=== PATIENT | female | born 1945 | race Caucasian/White ===

== ENCOUNTER 2018-03-23 10:30 | Outpatient (RCR) | payer MEDICARE, OTHER, SELFPAY ==
[2018-03-16 09:40] VITALS: BP 152/67; PULSE 83; RESP 16; TEMP 36; BMI 34.2
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
--- NOTE | 2018-03-23 08:30 | VDLE_ITS ---
Reason For Study: venous insufficiency RIGHT LEFT CFV is compressible, spontaneous, phasic, CFV is compressible, spontaneous, phasic, competent and demonstrates normal competent, and demonstrates normal augmentation. augmentation. FV is compressible, spontaneous, phasic, FV is compressible, spontaneous, phasic, competent and demonstrates normal competent and demonstrates normal augmentation. augmentation. POP V is compressible, spontaneous, phasic, POP V is compressible, spontaneous, phasic, competent and demonstrates normal competent and demonstrates normal augmentation. augmentation. T/P Trunk is compressible. T/P Trunk is compressible. PTV is compressible. PTV is compressible. RT PerV is compressible. LT PerV is compressible. S-F Junction is competent. S-F Junction is competent. GSV is incompetent throughout for greaster GSV is incompetent throughout for greaster than .5 seconds. GSV mesures .458 x .489 cm. than .5 seconds. GSV mesures .505 x .543 cm. SSV is competent. SSV is competent. Unable to image Peroneal V due to body Unable to image Peroneal V due to body habitus, edema, and open wounds. habitus, edema, and open wounds. Procedure Exam performed in department. The exam was of fair technical quality due to body habitus. Limited views of all veins. Interpretation Summary Deep veins of the lower extremities are bilaterally patent and compressible segmentally. There is no evidence of deep vein thrombosis on either side. Valvular competence appears intact within the proximal deep venous systems bilaterally. The greater saphenous veins appear bilaterally patent and compressible segmentally. Sapheno-femoral junctions are bilaterally competent . Segmental valvular incompetence is noted within the greater saphenous veins bilaterally. Small saphenous veins are patent and competent bilaterally. The peroneal veins were not visualized on either side. Ordering Physician: Fritz Kong Performed By: Bridgett, Kurt, RVT
[2018-03-23 10:01] VITALS: BP 139/66; PULSE 87; RESP 16; TEMP 36.2; BMI 34.2
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
--- NOTE | 2018-04-10 09:32 | LEAS ---
Arterial Study - Arterial Study Arterial Study: This is a 72-year-old female with a history of peripheral arterial occlusive disease. She is brought to the noninvasive vascular laboratory at this time for the purpose of bilateral noninvasive lower extremity arterial assessment. Doppler signal assessment was used to evaluate the pulses at ankle level bilaterally. On the right, the posterior tibial and dorsalis pedis pulses were biphasic. The left posterior tibial and dorsalis pedis pulses were triphasic. Segmental limb pressures were obtained bilaterally. The right ankle pressure, as determined by posterior tibial pulse, was measured at 191 mmHg. The right ankle pressure, as determined by dorsalis pedis pulse, was measured at 163 mmHg. Right digital pressure was measured at 114 mmHg. The left ankle pressure, as determined by posterior tibial pulse, was measured at 204 mmHg. The left ankle pressure, as determined by dorsalis pedis pulse, was measured at 202 mmHg. The left digital pressure was measured at 196 mmHg. Pulse-volume recordings were obtained bilaterally and segmentally. Waveform amplitudes appeared to be satisfactory at all levels bilaterally, including low thigh, calf, ankle, and digital levels. Resting ankle-brachial indices were calculated bilaterally. The resting right ankle-brachial index was calculated to be 1.00. The resting left ankle-brachial index was calculated to be 1.07. Digital-brachial indices were calculated bilaterally. The right digital-brachial index was calculated to be 0.60. The left digital-brachial index was calculated to be 1.03. Impression: Based upon the findings of this resting noninvasive lower extremity arterial study, arterial perfusion to ankle level appears to be relatively normal bilaterally. Biphasic waveforms are noted at ankle level on the right. Triphasic waveforms were noted at ankle level on the left. Resting ankle-brachial indices are bilaterally normal. These findings suggest relatively normal arterial flow to ankle level bilaterally. The right digital-brachial index is mildly diminished, suggesting the presence of mild, distal, small-vessel arterial occlusive disease in the right lower extremity. The left digital-brachial index is normal.
--- NOTE | 2018-04-10 09:39 | LEAS_ITS ---
Arterial Study - Arterial Study Arterial Study: This is a 72-year-old female with a history of peripheral arterial occlusive disease. She is brought to the noninvasive vascular laboratory at this time for the purpose of bilateral noninvasive lower extremity arterial assessment. Doppler signal assessment was used to evaluate the pulses at ankle level bilaterally. On the right, the posterior tibial and dorsalis pedis pulses were biphasic. The left posterior tibial and dorsalis pedis pulses were triphasic. Segmental limb pressures were obtained bilaterally. The right ankle pressure, as determined by posterior tibial pulse, was measured at 191 mmHg. The right ankle pressure, as determined by dorsalis pedis pulse, was measured at 163 mmHg. Right digital pressure was measured at 114 mmHg. The left ankle pressure , as determined by posterior tibial pulse, was measured at 204 mmHg. The left ankle pressure, as determined by dorsalis pedis pulse, was measured at 202 mmHg. The left digital pressure was measured at 196 mmHg. Pulse-volume recordings were obtained bilaterally and segmentally. Waveform amplitudes appeared to be satisfactory at all levels bilaterally, including low thigh, calf, ankle, and digital levels. Resting ankle-brachial indices were calculated bilaterally. The resting right ankle-brachial index was calculated to be 1.00. The resting left ankle- brachial index was calculated to be 1.07. Digital-brachial indices were calculated bilaterally. The right digital- brachial index was calculated to be 0.60. The left digital-brachial index was calculated to be 1.03. Impression: Based upon the findings of this resting noninvasive lower extremity arterial study, arterial perfusion to ankle level appears to be relatively normal bilaterally. Biphasic waveforms are noted at ankle level on the right. Triphasic waveforms were noted at ankle level on the left. Resting ankle- brachial indices are bilaterally normal. These findings suggest relatively normal arterial flow to ankle level bilaterally. The right digital-brachial index is mildly diminished, suggesting the presence of mild, distal, small- vessel arterial occlusive disease in the right lower extremity. The left digital-brachial index is normal.
== END 2018-03-25 23:59 ==
LOC: WC 10:30
PROVIDERS: PCP Family Medicine; Visit Provider Surgery
DX: L97.912 Non-pressure chronic ulcer of unspecified part of right lower leg with fat layer exposed (principal); L97.922 Non-pressure chronic ulcer of unspecified part of left lower leg with fat layer exposed; M79.89 Other specified soft tissue disorders; R60.0 Localized edema; E11.9 Type 2 diabetes mellitus without complications; I87.2 Venous insufficiency (chronic) (peripheral); I10 Essential (primary) hypertension; D64.9 Anemia, unspecified; E11.69 Type 2 diabetes mellitus with other specified complication; E78.5 Hyperlipidemia, unspecified; I42.9 Cardiomyopathy, unspecified; E66.9 Obesity, unspecified; I89.0 Lymphedema, not elsewhere classified; Z68.34 Body mass index [BMI] 34.0-34.9, adult; Z79.4 Long term (current) use of insulin
CPT/HCPCS: 11042; 11045; 29580; 93923; 93970; 99205; G0463

== ENCOUNTER 2018-04-20 08:13 | Outpatient (RCR) | payer MEDICARE, OTHER, SELFPAY ==
[2018-03-26 01:18] VITALS: BP 139/66; PULSE 87; RESP 16; TEMP 36.2
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
[2018-04-20 10:19] VITALS: BP 135/68; PULSE 76; RESP 18; TEMP 37.2
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
--- NOTE | 2018-04-21 09:27 | WC ---
Ms. Vaughn is currently staying at [facility] in [place], [place] PHONE: FAX: ([phone] Seen 04/[address] Kong (See Progress Note for DOS). Patient brought her lymphedema compression pump (VES 5100) with bilateral leg sleeves in during follow-up appointment. She mentioned she has had for approximately 6 years. She is not familiar with using them since it has been so long. Call made to [facility] and spoke with Alysa'. Staff there is not sure about the device. Arrangements being made to speak with lymphedema therapist Maryam John ([employer]) regarding use and settings of these pumps, per Dr. Kong. Collaboration between the nursing and wound center in process.
== END 2018-04-24 23:59 ==
LOC: WC 08:13
PROVIDERS: PCP Family Medicine; Visit Provider Surgery
DX: E11.622 Type 2 diabetes mellitus with other skin ulcer (principal); L97.812 Non-pressure chronic ulcer of other part of right lower leg with fat layer exposed; L97.822 Non-pressure chronic ulcer of other part of left lower leg with fat layer exposed; M79.89 Other specified soft tissue disorders; R60.0 Localized edema; I87.2 Venous insufficiency (chronic) (peripheral); E78.5 Hyperlipidemia, unspecified; I89.0 Lymphedema, not elsewhere classified; E66.9 Obesity, unspecified; Z68.34 Body mass index [BMI] 34.0-34.9, adult; Z71.3 Dietary counseling and surveillance
CPT/HCPCS: 11042; 11045; 29580

== ENCOUNTER 2018-05-25 09:30 | Outpatient (RCR) | payer MEDICARE, OTHER, SELFPAY ==
[2018-04-25 01:03] VITALS: BP 135/68; PULSE 76; RESP 18; TEMP 37.2
[2018-04-27 12:10] VITALS: BP 149/69; PULSE 86; RESP 16; TEMP 37.2
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
[2018-05-04 11:03] VITALS: BP 150/71; PULSE 84; RESP 18; TEMP 37.2
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
[2018-05-11 09:13] VITALS: BP 154/76; PULSE 77; RESP 16; TEMP 36.4
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
[2018-05-25 08:49] VITALS: BP 131/61; PULSE 76; RESP 16; TEMP 35
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
== END 2018-05-25 23:59 ==
LOC: WC 09:30
PROVIDERS: PCP Family Medicine; Visit Provider Surgery
DX: E11.622 Type 2 diabetes mellitus with other skin ulcer (principal); E11.621 Type 2 diabetes mellitus with foot ulcer; I87.2 Venous insufficiency (chronic) (peripheral); R60.0 Localized edema; M79.89 Other specified soft tissue disorders; L97.222 Non-pressure chronic ulcer of left calf with fat layer exposed; L97.212 Non-pressure chronic ulcer of right calf with fat layer exposed; E66.9 Obesity, unspecified; Z68.34 Body mass index [BMI] 34.0-34.9, adult; Z71.3 Dietary counseling and surveillance; I89.0 Lymphedema, not elsewhere classified; I10 Essential (primary) hypertension; I42.9 Cardiomyopathy, unspecified; L89.612 Pressure ulcer of right heel, stage 2; E78.5 Hyperlipidemia, unspecified; Z79.899 Other long term (current) drug therapy; Z79.4 Long term (current) use of insulin
CPT/HCPCS: 11042; 11045; 29580

== ENCOUNTER 2018-06-21 15:00 | Outpatient (RCR) | payer MEDICARE, OTHER, SELFPAY ==
[2018-05-26 01:00] VITALS: BP 131/61; PULSE 76; RESP 16; TEMP 35
[2018-05-28 12:05] VITALS: BP 145/73; PULSE 75; RESP 16; TEMP 36.1
[2018-06-01 10:14] VITALS: BP 132/59; PULSE 78; RESP 16; TEMP 37.3
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
[2018-06-04 11:18] VITALS: BP 156/71; PULSE 76; RESP 18; TEMP 35.9
[2018-06-08 09:10] VITALS: BP 154/78; PULSE 80; RESP 18; TEMP 36
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
[2018-06-15 09:26] VITALS: BP 143/77; PULSE 85; RESP 20; TEMP 36.6
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
[2018-06-21 14:51] VITALS: BP 135/72; PULSE 79; RESP 16; TEMP 36.4
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
== END 2018-06-25 23:59 ==
LOC: WC 15:00
PROVIDERS: PCP Family Medicine; Visit Provider Surgery
DX: E11.622 Type 2 diabetes mellitus with other skin ulcer (principal); R60.0 Localized edema; M79.89 Other specified soft tissue disorders; E78.4 Other hyperlipidemia; E66.9 Obesity, unspecified; Z68.34 Body mass index [BMI] 34.0-34.9, adult; Z71.3 Dietary counseling and surveillance; I89.0 Lymphedema, not elsewhere classified; Z79.899 Other long term (current) drug therapy; Z79.4 Long term (current) use of insulin; L97.212 Non-pressure chronic ulcer of right calf with fat layer exposed; I10 Essential (primary) hypertension; I87.2 Venous insufficiency (chronic) (peripheral)
CPT/HCPCS: 11042; 15271; 29580; 29581; 99214; Q4172; Q4196; G0463

== ENCOUNTER 2018-07-19 15:00 | Outpatient (RCR) | payer MEDICARE, OTHER, SELFPAY ==
[2018-06-26 01:07] VITALS: BP 135/72; PULSE 79; RESP 16; TEMP 36.4
[2018-06-29 09:32] VITALS: BP 146/69; PULSE 77; RESP 18; TEMP 35.6
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
[2018-07-05 14:32] VITALS: BP 142/81; PULSE 82; RESP 18; TEMP 36.6
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
[2018-07-12 13:51] VITALS: BP 133/99; PULSE 78; RESP 16; TEMP 36.2
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
[2018-07-19 14:53] VITALS: BP 154/79; PULSE 81; RESP 18; TEMP 36.3
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
== END 2018-07-25 23:59 ==
LOC: WC 15:00
PROVIDERS: PCP Family Medicine; Visit Provider Surgery
DX: E11.622 Type 2 diabetes mellitus with other skin ulcer (principal); M79.89 Other specified soft tissue disorders; R60.0 Localized edema; E11.51 Type 2 diabetes mellitus with diabetic peripheral angiopathy without gangrene; E78.5 Hyperlipidemia, unspecified; I89.0 Lymphedema, not elsewhere classified; E66.9 Obesity, unspecified; Z68.34 Body mass index [BMI] 34.0-34.9, adult; Z71.3 Dietary counseling and surveillance; Z79.899 Other long term (current) drug therapy; Z79.4 Long term (current) use of insulin; L97.212 Non-pressure chronic ulcer of right calf with fat layer exposed
CPT/HCPCS: 15271; 29581; 99213; Q4160; Q4172; G0463

== ENCOUNTER 2018-08-23 15:00 | Outpatient (RCR) | payer MEDICARE, OTHER, SELFPAY ==
[2018-07-26 00:52] VITALS: BP 154/79; PULSE 81; RESP 18; TEMP 36.3
[2018-08-02 13:44] VITALS: BP 141/57; PULSE 78; RESP 20; TEMP 36
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
[2018-08-10 09:00] VITALS: BP 139/70; PULSE 73; RESP 18; TEMP 35.9
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
[2018-08-13 15:05] VITALS: BP 148/67; PULSE 79; RESP 16; TEMP 36.6
[2018-08-16 14:09] VITALS: BP 143/74; PULSE 78; RESP 18; TEMP 36.9
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
[2018-08-20 11:50] VITALS: BP 136/82; PULSE 88; RESP 18; TEMP 36.6
[2018-08-23 14:19] VITALS: BP 161/80; PULSE 85; RESP 20; TEMP 36
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
== END 2018-08-25 23:59 ==
LOC: WC 15:00
PROVIDERS: PCP Family Medicine; Visit Provider Surgery
DX: E11.622 Type 2 diabetes mellitus with other skin ulcer (principal); I87.2 Venous insufficiency (chronic) (peripheral); R60.0 Localized edema; M79.89 Other specified soft tissue disorders; L97.212 Non-pressure chronic ulcer of right calf with fat layer exposed; L97.821 Non-pressure chronic ulcer of other part of left lower leg limited to breakdown of skin; I10 Essential (primary) hypertension; E78.5 Hyperlipidemia, unspecified; I89.0 Lymphedema, not elsewhere classified
CPT/HCPCS: 11042; 29581; 97597; 99212; 99213; G0463

== ENCOUNTER 2018-09-20 14:30 | Outpatient (RCR) | payer MEDICARE, OTHER, SELFPAY ==
[2018-08-26 00:56] VITALS: BP 161/80; PULSE 85; RESP 20; TEMP 36
--- NOTE | 2018-08-27 10:06 | WC ---
Call from [facility] regarding Santyl. Patient co-pay $320.46. Patient contacted and is unable to afford this medication. [facility] also contacted. Order cancelled. Will discuss with Dr. Kong on Thursday during next visit, further treatment options. Ms. Vaughn currently being seen by Home Health agency using adaptic dressings, Kerlex. Unable to use CircAids, but acknowledges using Compression Pumps 3 times a day for 30 min. Encouraged increasing time to 60 minutes.
[2018-08-30 13:52] VITALS: BP 143/63; PULSE 83; RESP 16; TEMP 36.4
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
[2018-09-06 14:03] VITALS: BP 165/84; PULSE 92; RESP 18; TEMP 35.7
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
[2018-09-07 19:39] LABS: M R Staph aureus DNA By PCR POSITIVE (Negative); Probe Check PASS; Staph aureus DNA By PCR POSITIVE (Negative)
[2018-09-13 13:55] VITALS: BP 162/82; PULSE 82; RESP 16; TEMP 35.9
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
[2018-09-20 14:14] VITALS: BP 183/86; PULSE 83; RESP 16; TEMP 36.8
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
== END 2018-09-24 23:59 ==
LOC: WC 14:30
PROVIDERS: PCP Family Medicine; Visit Provider Surgery
DX: E11.622 Type 2 diabetes mellitus with other skin ulcer (principal); R60.0 Localized edema; M79.89 Other specified soft tissue disorders; E66.9 Obesity, unspecified; Z71.3 Dietary counseling and surveillance; I89.0 Lymphedema, not elsewhere classified; L97.212 Non-pressure chronic ulcer of right calf with fat layer exposed; I87.2 Venous insufficiency (chronic) (peripheral); Z68.34 Body mass index [BMI] 34.0-34.9, adult; I10 Essential (primary) hypertension; E78.5 Hyperlipidemia, unspecified
CPT/HCPCS: 11042; 11045; 87070; 87075; 87077; 87186; 87205; 87640

== ENCOUNTER 2018-10-25 14:00 | Outpatient (RCR) | payer MEDICARE, OTHER, SELFPAY ==
[2018-09-25 00:54] VITALS: BP 183/86; PULSE 83; RESP 16; TEMP 36.8
[2018-09-27 13:57] VITALS: BP 164/76; PULSE 76; RESP 18; TEMP 36.2
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
--- NOTE | 2018-10-04 13:51 | PCM.HP.ID ---
Problem List (1) MRSA (methicillin resistant Staphylococcus aureus) infection Status: Acute Reason for Consult: mrsa infection Consulted by: Dr. Kong History of Present Illness: The patient is a 73 year old F with DM, chronic back pain, BLE edema, and venous insufficiency who follows at wound care for BLE ulcers. LLE has healed, but RLE still with ulcer with some greenish/yellowish drainage, significant pain, and mild redness. Recent wound cx with MRSA and enterococcus. Had nausea, diarrhea, mild abd cramping with recent courses of clinda and amoxicillin. No fever or chills. Abd sx have resolved. Full ROS performed and neg except as noted above. 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 (Chronic) Home Medications: Ambulatory Orders Medication Instructions Recorded Acetaminophen 325 mg PO PRN 03/16/18 Amoxicillin/Potassium Clav BID 03/16/18 [Augmentin 875-125 Tablet] DiphenhydrAMINE [Benadryl] 25 mg PO BID PRN PRN 03/16/18 Ergocalciferol [Vitamin D] 20,000 unit PO Q7D 03/16/18 Fluconazole [Diflucan] 100 mg PO X1 03/16/18 Fluticasone Furoate [Flonase 9.9 ml NS 03/16/18 Sensimist] Furosemide [Lasix] 40 mg PO DAILY 03/16/18 Gabapentin [Neurontin] 100 mg PO 03/16/18 Insulin Glargine,Hum.rec.anlog 100 unit SQ 03/16/18 [Basaglar Kwikpen U-100] Insulin Lispro [Humalog] 100 unit 03/16/18 Metoprolol Succinate 50 mg PO 03/16/18 Omeprazole 20 mg PO DAILY 03/16/18 Oxycodone HCl/Acetaminophen 03/16/18 [Percocet 5-325] Oxymetazoline 0.05% [Afrin (BKC)] 15 spray NASAL PRN 03/16/18 Simvastatin 20 mg PO DAILY 03/16/18 Venlafaxine HCl 75 mg PO DAILY 03/16/18 traZODone [Desyrel] 150 mg PO DAILY 03/16/18 - Social History SMOKING STATUS:: Never smoker Vital Signs Temp Pulse Resp BP 97.1 F L 76 18 164/76 H 09/27/18 13:57 09/27/18 13:57 09/27/18 13:57 09/27/18 13:57 Weight: 105.233 kg reviewed - Other Studies Radiology: [] Other Studies: [] Route of nutrition/ use of supplements: [] Nutritional Intake: [] IV Site: [] Santacruz Catheter: [] - Physical Exam General: Alert, Oriented x3, Cooperative, No apparent distress HEENT: Atraumatic, PERRLA, EOMI Neck: Supple, No Nodes Lungs: Clear to auscultation, Normal air movement Cardiovascular: Regular rate, Regular Rhythm, Murmur Abdomen: Soft, Non Tender, Non-Distended Extremities: Edema Skin: Ulcer/ Wound - RLE with ulcer, mild serous drainage on dressing. BLE cool. Musculoskeletal: No Tenderness to Palpation of Joints or Extremities Neurological: Cranial nerves II-XII grossly intact - Assessment/Plan Antibiotics: [] Assessment/Plan: [] MRSA and enterococcus infected RLE ulcer with chronic BLE edema - limited abx options based on susceptibilities and intolerance to recent courses of amox and clinda. Reviewed labs and imaging. Will write for 10 day course of linezolid. Discussed with her risks of serotonin syndrome given she is on low dose effexor. She is to watch for fever, altered mental status, rigidity. Will follow as needed, d/w Dr. Kong, thank you for this consultation.
[2018-10-04 14:10] VITALS: BP 176/69; PULSE 85; RESP 18; TEMP 36.6
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
[2018-10-25 13:36] VITALS: BP 181/78; PULSE 78; RESP 18; TEMP 36.9
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
== END 2018-10-25 23:59 ==
LOC: WC 14:00
PROVIDERS: PCP Family Medicine; Visit Provider Surgery
DX: E11.622 Type 2 diabetes mellitus with other skin ulcer (principal); I87.2 Venous insufficiency (chronic) (peripheral); R60.0 Localized edema; M79.89 Other specified soft tissue disorders; L97.212 Non-pressure chronic ulcer of right calf with fat layer exposed; I10 Essential (primary) hypertension; E78.5 Hyperlipidemia, unspecified; I89.0 Lymphedema, not elsewhere classified; Z86.14 Personal history of Methicillin resistant Staphylococcus aureus infection; E66.9 Obesity, unspecified; Z68.34 Body mass index [BMI] 34.0-34.9, adult; Z71.3 Dietary counseling and surveillance; Z98.84 Bariatric surgery status
CPT/HCPCS: 11042

== ENCOUNTER 2018-11-22 14:00 | Outpatient (RCR) | payer MEDICARE, OTHER, SELFPAY ==
[2018-10-26 00:43] VITALS: BP 181/78; PULSE 78; RESP 18; TEMP 36.9
[2018-11-01 13:58] VITALS: BP 161/74; PULSE 75; RESP 18; TEMP 36.6
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
[2018-11-08 13:30] VITALS: BP 190/85; PULSE 110; RESP 18; TEMP 37.1
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
[2018-11-22 13:31] VITALS: BP 167/81; PULSE 77; RESP 16; TEMP 37.1
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
== END 2018-11-25 23:59 ==
LOC: WC 14:00
PROVIDERS: PCP Family Medicine; Visit Provider Surgery
DX: E11.622 Type 2 diabetes mellitus with other skin ulcer (principal); I87.2 Venous insufficiency (chronic) (peripheral); R60.0 Localized edema; M79.89 Other specified soft tissue disorders; L97.212 Non-pressure chronic ulcer of right calf with fat layer exposed; I10 Essential (primary) hypertension; E78.5 Hyperlipidemia, unspecified; I89.0 Lymphedema, not elsewhere classified; E66.9 Obesity, unspecified; Z86.14 Personal history of Methicillin resistant Staphylococcus aureus infection; Z68.34 Body mass index [BMI] 34.0-34.9, adult; Z71.3 Dietary counseling and surveillance; Z98.84 Bariatric surgery status
CPT/HCPCS: 11042; 99213; G0463

== ENCOUNTER 2018-12-13 14:00 | Outpatient (RCR) | payer MEDICARE, OTHER, SELFPAY ==
[2018-11-26 01:06] VITALS: BP 167/81; PULSE 77; RESP 16; TEMP 37.1
[2018-11-29 13:49] VITALS: BP 146/60; PULSE 87; RESP 18; TEMP 36.3
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
[2018-12-13 14:08] VITALS: BP 137/69; PULSE 82; RESP 16; TEMP 36.9
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
== END 2018-12-23 23:59 ==
LOC: WC 14:00
PROVIDERS: PCP Family Medicine; Visit Provider Surgery
DX: E11.622 Type 2 diabetes mellitus with other skin ulcer (principal); R60.0 Localized edema; M79.89 Other specified soft tissue disorders; I87.2 Venous insufficiency (chronic) (peripheral); L97.212 Non-pressure chronic ulcer of right calf with fat layer exposed; E78.5 Hyperlipidemia, unspecified; I10 Essential (primary) hypertension; E66.9 Obesity, unspecified; Z68.34 Body mass index [BMI] 34.0-34.9, adult; Z71.3 Dietary counseling and surveillance; I89.0 Lymphedema, not elsewhere classified; Z98.84 Bariatric surgery status
CPT/HCPCS: 11042

== ENCOUNTER 2019-01-17 14:00 | Outpatient (RCR) | payer SELFPAY ==
[2018-12-24 00:54] VITALS: BP 137/69; PULSE 82; RESP 16; TEMP 36.9
[2019-01-03 14:14] VITALS: BP 166/80; PULSE 78; RESP 18; TEMP 36.9
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
[2019-01-10 13:34] VITALS: BP 165/60; PULSE 85; RESP 16; TEMP 36.6
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
[2019-01-17 13:09] VITALS: BP 180/76; PULSE 73; RESP 18; TEMP 37.2
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
== END 2019-01-23 23:59 ==
LOC: WC 14:00
PROVIDERS: PCP Family Medicine; Visit Provider Surgery
DX: E11.622 Type 2 diabetes mellitus with other skin ulcer (principal); E11.69 Type 2 diabetes mellitus with other specified complication; I87.2 Venous insufficiency (chronic) (peripheral); R60.0 Localized edema; M79.89 Other specified soft tissue disorders; L97.212 Non-pressure chronic ulcer of right calf with fat layer exposed; I10 Essential (primary) hypertension; E78.5 Hyperlipidemia, unspecified; I89.0 Lymphedema, not elsewhere classified; Z98.84 Bariatric surgery status; E66.9 Obesity, unspecified; Z68.34 Body mass index [BMI] 34.0-34.9, adult; Z71.3 Dietary counseling and surveillance; L97.822 Non-pressure chronic ulcer of other part of left lower leg with fat layer exposed; L97.812 Non-pressure chronic ulcer of other part of right lower leg with fat layer exposed
CPT/HCPCS: 11042; 29581

== ENCOUNTER 2019-02-21 14:00 | Outpatient (RCR) | payer MEDICARE, OTHER, SELFPAY ==
[2019-01-24 00:48] VITALS: BP 180/76; PULSE 73; RESP 18; TEMP 37.2
[2019-01-24 14:18] VITALS: BP 164/81; PULSE 80; RESP 18; TEMP 37.2
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
[2019-01-31 13:37] VITALS: BP 141/75; PULSE 87; RESP 20; TEMP 37.1
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
[2019-02-21 14:03] VITALS: BP 155/85; PULSE 78; RESP 18; TEMP 36
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
== END 2019-02-22 23:59 ==
LOC: WC 14:00
PROVIDERS: Family Provider Family Medicine; PCP Family Medicine; Referring Provider Surgery; Visit Provider Surgery
DX: E11.622 Type 2 diabetes mellitus with other skin ulcer (principal); R60.0 Localized edema; L97.212 Non-pressure chronic ulcer of right calf with fat layer exposed; M79.89 Other specified soft tissue disorders; I87.2 Venous insufficiency (chronic) (peripheral); I10 Essential (primary) hypertension; E78.5 Hyperlipidemia, unspecified; E66.9 Obesity, unspecified; Z68.34 Body mass index [BMI] 34.0-34.9, adult; Z71.3 Dietary counseling and surveillance
CPT/HCPCS: 11042

== ENCOUNTER 2019-03-22 11:33 | Outpatient (RCR) | payer MEDICARE, OTHER, SELFPAY ==
[2019-02-23 00:58] VITALS: BP 155/85; PULSE 78; RESP 18; TEMP 36
[2019-03-22 12:07] VITALS: BP 150/63; PULSE 76; RESP 18; TEMP 36.5
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
== END 2019-03-25 23:59 ==
LOC: WC 11:33
PROVIDERS: Family Provider Family Medicine; PCP Family Medicine; Referring Provider Surgery; Visit Provider Surgery
DX: E11.622 Type 2 diabetes mellitus with other skin ulcer (principal); R60.0 Localized edema; L97.212 Non-pressure chronic ulcer of right calf with fat layer exposed; I87.2 Venous insufficiency (chronic) (peripheral); I10 Essential (primary) hypertension; E78.5 Hyperlipidemia, unspecified; I89.0 Lymphedema, not elsewhere classified; E66.9 Obesity, unspecified; Z68.34 Body mass index [BMI] 34.0-34.9, adult; Z71.3 Dietary counseling and surveillance; Z86.14 Personal history of Methicillin resistant Staphylococcus aureus infection; Z98.84 Bariatric surgery status
CPT/HCPCS: 11042

== ENCOUNTER 2019-04-05 09:45 | Outpatient (RCR) | payer MEDICARE, OTHER, SELFPAY ==
[2019-03-26 00:44] VITALS: BP 150/63; PULSE 76; RESP 18; TEMP 36.5
[2019-03-29 09:20] VITALS: TEMP 36.3
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
[2019-04-05 09:48] VITALS: BP 181/77; PULSE 77; RESP 18; TEMP 36.8
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
== END 2019-04-24 23:59 ==
LOC: WC 09:45
PROVIDERS: Family Provider Family Medicine; PCP Family Medicine; Referring Provider Surgery; Visit Provider Surgery
DX: E11.622 Type 2 diabetes mellitus with other skin ulcer (principal); M79.89 Other specified soft tissue disorders; R60.0 Localized edema; I10 Essential (primary) hypertension; I87.2 Venous insufficiency (chronic) (peripheral); E78.5 Hyperlipidemia, unspecified; L97.212 Non-pressure chronic ulcer of right calf with fat layer exposed; Z86.14 Personal history of Methicillin resistant Staphylococcus aureus infection; E66.9 Obesity, unspecified; Z68.34 Body mass index [BMI] 34.0-34.9, adult; Z71.3 Dietary counseling and surveillance; Z79.899 Other long term (current) drug therapy; Z79.4 Long term (current) use of insulin; I89.0 Lymphedema, not elsewhere classified
CPT/HCPCS: 11042; 29581; 99212; G0463